=== PATIENT | female | born 1965 | race Caucasian/White ===

== ENCOUNTER 2017-05-30 08:49 | Emergency (ER) | payer OTHER ==
[~2017-05-30] VITALS: Wt 72.0 kg
[~2017-05-30 08:49] MED LIST: DEPRESSION MED PO; MELO-110 PO
--- NOTE | 2017-05-30 10:48 | ERD ---
ER Documentation Chief Complaint Date/Time DATE: 05/30/17 TIME: 10:45 Chief Complaint ABD PAIN VOMITING AND DIZZINESS SINCE THIS MORNING. NO NEURO DEFICIT HPI Patient is a 52-year-old female who presents with sudden onset, constant, severe vertigo since 2 AM. She reports multiple episodes of vomiting. She reports that the vertigo is worse with movements of her head. She reports a ringing sound in her bilateral ears, left greater than right. She denies hearing loss. She reports a 68 year history of recurrent symptoms that are identical to her current symptoms. She has seen an ENT doctor and a neurologist and has had MRI. All testing has been unremarkable. She denies abdominal pain, fever, diarrhea. She denies headache. She states that her symptoms have improved since onset and are currently mild. ROS All systems reviewed and are negative except as per history of present illness. Medications Home Meds Active Scripts Meclizine Hcl* (Antivert*) 12.5 Mg Tab, 12.5 MG PO Q6H Y for DIZZINESS, #20 TAB Prov:MARKUS BLAKE MD 05/30/17 Reported Medications [Depression Med] No Conflict Check, PO HS 06/21/15 Meloxicam* (Mobic*) 15 Mg Tablet, 15 MG PO DAILY, TAB 06/21/15 Allergies Allergies: Coded Allergies: No Known Allergy (Unverified , 06/21/15) PMhx/Soc Past medical history: Vertigo Past surgical history: Hysterectomy, hernia repair Social history: Denies tobacco, alcohol or illicit drugs. History of Surgery: Yes (DIOGENES, H HERNIA) Anesthesia Reaction: No Hx Neurological Disorder: No Hx Respiratory Disorders: No Hx Cardiac Disorders: No Hx Psychiatric Problems: Yes (ANXIETY, DEPRESION.PO MED, FAMILY SUPPORT) Hx Miscellaneous Medical Probl: No Hx Alcohol Use: No Hx Substance Use: No Hx Tobacco Use: No FmHx Family History: No coronary disease, No diabetes Physical Exam Vitals Vital Signs Date Time Temp Pulse Resp B/P Pulse Ox O2 Delivery O2 Flow Rate FiO2 05/30/17 12:37 98.6 70 16 110/72 100 Room Air 05/30/17 11:00 62 18 118/82 99 Room Air 05/30/17 08:53 98.3 71 20 136/95 99 Physical Exam Const: Alert, no acute distress Head: Atraumatic Eyes: Normal Conjunctiva, no pallor, no icterus ENT: Normal External Ears, Nose and Mouth. Mucous membranes moist. Normal tympanic membrane left ear. Neck: Full range of motion..~ No meningismus. Resp: Clear to auscultation bilaterally, no wheezes, no rales Cardio: Regular rate and rhythm, no murmurs Abd: Soft, non tender, non distended. Normal bowel sounds Skin: No petechiae or rashes Back: No midline or flank tenderness Ext: No cyanosis, or edema Neur: Awake and alert, cranial nerves II through XII intact bilaterally, strength and sensation full in 4 extremities, no pronator drift, no dysmetria, no diplopia with extraocular movements, no nystagmus. Psych: Normal Mood and Affect Results 24 hrs Current Medications Medications (Trade) Dose Ordered Sig/Kvng Route PRN Reason Start Time Stop Time Status Last Admin Dose Admin Sodium Chloride (NS) 1,000 ml @ 1,000 mls/hr Q1H ONCE IV 05/30/17 11:00 05/30/17 11:59 DC 05/30/17 10:52 Meclizine HCl (Antivert) 25 mg ONCE ONCE PO 05/30/17 11:00 05/30/17 11:01 DC 05/30/17 10:51 Metoclopramide HCl (Reglan) 10 mg ONCE ONCE IV 05/30/17 11:00 05/30/17 11:01 DC 05/30/17 10:51 Procedures/MDM MDM: Patient is a 52-year-old female with a long history of recurrent vertigo. She has had neurologic workup that was negative and is seen in ENT who does not believe that it is related to inner ear dysfunction. Patient does not of hearing loss but does have tinnitus. She presents with an acute episode of symptoms that are similar to prior episodes. There are no features that are concerning for central nervous system etiology. She initially had vomiting, but this resolved prior to ER arrival. She was given IV fluids, Reglan and meclizine, and states that she feels significantly better. I will discharge her home with prescription for meclizine, and advised her on return precautions and close PMD follow-up. She denies having had previous prescription for meclizine. Departure Diagnosis: Primary Impression: Vertigo Additional Impression: Vomiting Vomiting type: unspecified Vomiting Intractability: non-intractable Nausea presence: with nausea Qualified Code: R11.2 - Non-intractable vomiting with nausea, unspecified vomiting type Condition: MARKUS Clark MD May 30, 2017 10:48
[2017-05-30] MEDS ORDERED: METOCLOPRAMIDE 10 MG INJ IV ONE (11:00)
[2017-05-30] MEDS ORDERED: SOD CHLORIDE 0.9% 1,000 ML IV ONE (11:00)
[2017-05-30] MEDS ORDERED: MECLIZINE 12.5 MG TAB PO ONE (11:00)
[2017-05-30] MEDS ORDERED: MECL12.574 PO (12:31)
[2017-05-30 12:37] VITALS: BP 110/72; PULSE 70; RESP 16; TEMP 98.6
== END 2017-05-30 12:39 | disposition home or self-care (01) ==
LOC: E/R 08:49
DX: R42 Dizziness and giddiness (principal); R11.2 Nausea with vomiting, unspecified
CPT/HCPCS: 96374; J2765; J7030; Z7502; Z7610